=== PATIENT | male | born 1980 | race Caucasian/White ===

== ENCOUNTER 2016-07-12 14:14 | Emergency (ER) | payer SELFPAY ==
[~2016-07-12] VITALS: Ht 172.7 cm; Wt 91.0 kg
[2016-07-12 14:28] VITALS: BP 132/90; PULSE 52; RESP 16; TEMP 97.6; O2SAT 98
[2016-07-12] MEDS ORDERED: SODIUM CHLOR 0.9% 1000 ML INJ 1,000 ML IV ONE (15:51)
[2016-07-12] MEDS ORDERED: SODIUM CHLORIDE 0.9% FLUSH 10 ML FLUSH IVF PRN (16:00)
[2016-07-12] MEDS ORDERED: METOCLOPRAMIDE HCL 10 MG/2 ML VIAL IVP ONE (16:00)
[2016-07-12] MEDS ORDERED: diphenhydrAMINE HCL 50 MG/ML VIAL IVP ONE (16:00)
[2016-07-12] MEDS ORDERED: DEXAMETHASONE SOD PHOS 20 MG/5 ML VIAL IV PUSH ONE (16:00)
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
[2016-07-12 16:31] LABS: AUTOMATED NEUTROPHIL # 12.9 TH/MM3 (1.8-7.7); BASOPHIL # 0.1 TH/MM3 (0-0.2); BASOPHIL % 0.4 % (0.0-2.0); EOSINOPHIL # 0.1 TH/MM3 (0-0.4); EOSINOPHIL % 0.4 % (0.0-4.0); HEMATOCRIT 44.2 % (39.0-51.0); LYMPH % 6.7 % (9.0-44.0); MEAN CELL VOLUME 85.5 FL (80.0-100.0); MEAN CORPUSCULAR HGB CONC 32.8 % (32.0-36.0); MONO % 2.8 % (0.0-8.0); NEUT % 89.7 % (16.0-70.0); PLATELET COUNT 158 TH/MM3 (150-450); RED BLOOD COUNT 5.17 MIL/MM3 (4.50-5.90); RED CELL DISTRIBUTION WIDTH 11.9 % (11.6-17.2); WHITE BLOOD COUNT 14.5 TH/MM3 (4.0-11.0)
[2016-07-12 16:34] LABS: HEMO FLAGS DIFF FINAL
[2016-07-12 16:36] LABS: CHLORIDE 104 MEQ/L (98-107); POTASSIUM 3.9 MEQ/L (3.5-5.1); SODIUM (NA) 142 MEQ/L (136-145)
[2016-07-12 16:41] LABS: ANION GAP 9 MEQ/L (5-15); APTT (PATIENT) 23.8 SEC (24.3-30.1); BICARBONATE 28.9 MEQ/L (21.0-32.0); PROTHROMBIN TIME - PATIENT 10.8 SEC (9.8-11.6)
[2016-07-12 16:42] LABS: BLOOD UREA NITROGEN 16 MG/DL (7-18)
[2016-07-12 16:44] LABS: ALT (GPT) 33 U/L (12-78)
[2016-07-12 16:45] LABS: AST (GOT) 14 U/L (15-37); GLOMERULAR FILTRATION RATE 95 ML/MIN (>89)
[2016-07-12 16:46] LABS: TOTAL BILIRUBIN ADULT 0.5 MG/DL (0.2-1.0)
[2016-07-12 16:47] LABS: ALKALINE PHOSPHATASE 68 U/L (45-117)
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
[2016-07-12 17:19] VITALS: BP 114/72; PULSE 76; RESP 18; O2SAT 98
--- NOTE | 2016-07-12 18:21 | RADHPO ---
EXAM DATE/TIME: 07/12/2016 17:34 [facility] COMPARISON: No previous studies available for comparison. INDICATIONS : Cephalgia. RADIATION DOSE: 64.10 CTDIvol (mGy) MEDICAL HISTORY : None SURGICAL HISTORY : None. ENCOUNTER: Initial ACUITY: 1 day PAIN SCALE: 8/10 LOCATION: Left cranial TECHNIQUE: Multiple contiguous axial images were obtained of the head. Using automated exposure control and adj ustment of the mA and/or kV according to patient size, radiation dose was kept as low as reasonably a chievable to obtain optimal diagnostic quality images. FINDINGS: CEREBRUM: The ventricles are normal for age. No evidence of midline shift, mass lesion, hemorrhage or acute in farction. No extra-axial fluid collections are seen. POSTERIOR FOSSA: The cerebellum and brainstem are intact. The 4th ventricle is midline. The cerebellopontine angle i s unremarkable. EXTRACRANIAL: The visualized portion of the orbits is intact. SKULL: The calvaria is intact. No evidence of skull fracture. CONCLUSION: No acute disease. Dwight Dowling MD on July 12, 2016 at 18:19 Board Certified Radiologist. This report was verified electronically.
[2016-07-12] MEDS ORDERED: ACET500T36 PO (18:38)
== END 2016-07-12 18:53 | disposition home or self-care (01) ==
LOC: EDBD → PHEFT 14:14
DX: G43.909 Migraine, unspecified, not intractable, without status migrainosus (principal)
CPT/HCPCS: 70450; 80053; 85025; 85610; 85730; 96361; 96374; 96375; 99284; J1100; J1200; J2765; J7030